=== PATIENT | female | born 1955 | race Caucasian/White ===

== ENCOUNTER 2017-09-19 10:06 | Emergency (ER) | payer OTHER, MEDICAID ==
[~2017-09-19] VITALS: Ht 154.9 cm; Wt 68.0 kg
[2017-09-19 10:16] VITALS: BP_SYST 157
[2017-09-19 11:18] LABS: INFLUENZA A&B ANTIGEN SCREEN NEGATIVE FOR A & B (NEGATIVE); STREPTOCOCCUS A SCREEN (RAPID) NEGATIVE (NEGATIVE)
[2017-09-19 11:35] VITALS: BP_SYST 157
== END 2017-09-19 11:35 | disposition home or self-care (01) ==
LOC: SED 10:06
DX: J06.9 Acute upper respiratory infection, unspecified (principal); E11.9 Type 2 diabetes mellitus without complications; Z88.0 Allergy status to penicillin
CPT/HCPCS: 36415; 86403; 86710; 87081; 99284

== ENCOUNTER 2018-04-29 14:47 | Emergency (ER) | payer OTHER, MEDICAID ==
[~2018-04-29] VITALS: Ht 154.9 cm; Wt 68.0 kg
[2018-04-29 15:01] VITALS: BP_SYST 148
--- NOTE | 2018-04-29 15:18 | NUR ---
Pt to WR.
[2018-04-29 15:50] LABS: BASOPHILS # (AUTO) 0.1 K/uL (0.0-0.2); EOSINOPHILS % (AUTO) 0.4 % (0.0-4.0); HEMATOCRIT 41.2 % (36-48); HEMOGLOBIN 13.9 g/dL (12.0-16.0); LYMPHOCYTES # (AUTO) 1.9 K/uL (1.0-5.5); LYMPHOCYTES % (AUTO) 19.3 % (20.5-51.5); MEAN CORPUSCULAR HEMOGLOBIN 30 pg (27-31); MEAN CORPUSCULAR HGB CONC 34 % (32-36); MEAN CORPUSCULAR VOLUME 88 fL (79.0-98.0); MONOCYTES # (AUTO) 0.4 K/uL (0.0-1.0); MONOCYTES % (AUTO) 4.4 % (1.7-9.3); NEUTROPHILS # (AUTO) 7.5 K/uL (1.8-7.7); NEUTROPHILS % (AUTO) 74.9 % (40.0-70.0); PLATELET COUNT (AUTO) 173 K/uL (130-430); RED CELL DISTRIBUTION WIDTH 12.5 % (9.0-15.0); WHITE BLOOD COUNT (AUTO) 9.9 K/uL (4.8-10.8)
[2018-04-29 16:09] LABS: CREATININE 0.69 mg/dL (0.55-1.30)
--- NOTE | 2018-04-29 16:30 | NUR ---
Patient to ER bed 7 to gown for evaluation. Side rails up. Report given to Roselia POWERS.
--- NOTE | 2018-04-29 16:45 | NUR ---
Dr Morales at bedside examining patient
[2018-04-29 16:50] LABS: BILIRUBIN,URINE NEGATIVE (NEGATIVE); BLOOD, URINE 1+ (NEGATIVE); CLARITY/URINE CLEAR (CLEAR); COLOR,URINE YELLOW (YELLOW); GLUCOSE,URINE 3+ (NEGATIVE); KETONES,URINE NEGATIVE (NEGATIVE); LEUKOCYTE ESTERASE ,URINE NEGATIVE (NEGATIVE); NITRITE, URINE NEGATIVE (NEGATIVE); PROTEIN URINE NEGATIVE (NEGATIVE); UROBILINOGEN,URINE 0.2 (0.2-1.0)
--- NOTE | 2018-04-29 16:50 | NUR ---
Pt brought by family, A&Ox4, pt states her BS on insulin pump was reading >600 , current BS 219, pt c/o mind dizziness, able to ambulate, VS WNL, pt denies chest pain, respirations even and unlabored, no N/V/D.
--- NOTE | 2018-04-29 17:00 | NUR ---
Pt on stable condition, VS WNL, respirations even and unlabored
[2018-04-29 17:03] LABS: BACTERIA,URINE RARE /HPF (None Seen); WBC,URINE 0-3 /HPF (0-3)
[2018-04-29 17:28] VITALS: BP_SYST 148
--- NOTE | 2018-04-29 17:30 | NUR ---
Patient given written and verbal discharge instructions and verbalizes understanding. ER MD discussed with patient the results and treatment provided. Patient in stable condition. ID arm band removed. No Rx given. Patient educated on pain management and to follow up with PMD. Pain Scale 0/10 . Opportunity for questions provided and answered. Medication side effect fact sheet provided.
== END 2018-04-29 17:28 | disposition home or self-care (01) ==
LOC: SED 14:47
DX: E11.65 Type 2 diabetes mellitus with hyperglycemia (principal); I10 Essential (primary) hypertension; G89.29 Other chronic pain; Z88.0 Allergy status to penicillin
CPT/HCPCS: 36415; 80048; 81000-TC; 85025; 99284

== ENCOUNTER 2021-06-08 17:47 | Emergency (ER) | payer OTHER, MEDICAID ==
[~2021-06-08] VITALS: Ht 154.9 cm; Wt 68.0 kg
[2021-06-08 18:10] VITALS: BP_SYST 165
--- NOTE | 2021-06-08 18:15 | NUR ---
Pt triaged and placed in waiting room
--- NOTE | 2021-06-08 19:14 | NUR ---
Patient to ER bed 7 to gown for evaluation. Side rails up. Report given to Elli POWERS.
--- NOTE | 2021-06-08 19:30 | NUR ---
Pt AAO and ambulatory reporting "high" blood sugar today @ 1400. Pt gave herself 12 units of insulin at home prior to coming in. On arrival bs noted to be (362). Pt reports fatigue, excessive thirst, and excessive urination. Pt has history of DM, thyroid, and high cholesterol. Pt currently denies any pain.
--- NOTE | 2021-06-08 19:45 | NUR ---
Dr. Knott at bedside to assess.
[2021-06-08 19:52] LABS: BILIRUBIN,URINE NEGATIVE (NEGATIVE); BLOOD, URINE 1+ (NEGATIVE); CLARITY/URINE CLEAR (CLEAR); COLOR,URINE YELLOW (YELLOW); GLUCOSE,URINE 3+ (NEGATIVE); KETONES,URINE NEGATIVE (NEGATIVE); LEUKOCYTE ESTERASE ,URINE NEGATIVE (NEGATIVE); NITRITE, URINE NEGATIVE (NEGATIVE); PROTEIN URINE NEGATIVE (NEGATIVE); UROBILINOGEN,URINE 0.2 (0.2-1.0)
[2021-06-08] MEDS ORDERED: NS 500 ML IV ONE (20:00)
--- NOTE | 2021-06-08 20:10 | NUR ---
# 20 gauge angiocath placed to left hand. Use of asceptic technique. Opsite placed over site. Blood return noted. Blood for lab drawn from site. Flushed with 10 cc of normal saline. No evidence of infiltration noted. Patient tolerated well.
[2021-06-08 20:34] LABS: BACTERIA,URINE FEW /HPF (None Seen)
[2021-06-08 20:35] LABS: MUCUS,URINE None Seen /LPF (None Seen)
[2021-06-08 20:39] LABS: BASOPHILS # (AUTO) 0.1 K/uL (0.0-0.2); BASOPHILS % (AUTO) 0.8 % (0.0-2.0); EOSINOPHILS % (AUTO) 0.3 % (0.0-4.0); HEMATOCRIT 41.2 % (36-48); HEMOGLOBIN 13.9 g/dL (12.0-16.0); LYMPHOCYTES # (AUTO) 2.6 K/uL (1.0-5.5); LYMPHOCYTES % (AUTO) 28.8 % (20.5-51.5); MEAN CORPUSCULAR HEMOGLOBIN 30 pg (27-31); MEAN CORPUSCULAR HGB CONC 34 % (32-36); MEAN CORPUSCULAR VOLUME 88 fL (79.0-98.0); MONOCYTES # (AUTO) 0.7 K/uL (0.0-1.0); NEUTROPHILS # (AUTO) 5.7 K/uL (1.8-7.7); NEUTROPHILS % (AUTO) 62.1 % (40.0-70.0); PLATELET COUNT (AUTO) 149 K/uL (130-430); RED BLOOD CELL COUNT(AUTO) 4.67 MIL/uL (4.2-6.2); WHITE BLOOD COUNT (AUTO) 9.2 K/uL (4.8-10.8)
[2021-06-08 20:53] LABS: CALCIUM 9.5 mg/dL (8.4-11.0); CREATININE 0.87 mg/dL (0.55-1.30); POTASSIUM 3.8 mmol/L (3.5-5.1)
[2021-06-08 21:04] LABS: ALBUMIN 4.1 g/dL (3.4-4.8); PHOSPHORUS 2.9 mg/dL (2.7-4.5); TOTAL BILIRUBIN 0.4 mg/dL (0.0-1.0)
--- NOTE | 2021-06-08 21:05 | NUR ---
Pt resting quietly in no distress awaiting disposition.
[2021-06-08 22:14] VITALS: BP_SYST 165
--- NOTE | 2021-06-08 22:14 | NUR ---
Patient given written and verbal discharge instructions and verbalizes understanding. ER MD MORALES discussed with patient the results and treatment provided. Patient in stable condition. ID arm band removed. IV catheter removed intact and dressing applied, no active bleeding. Patient educated on pain management and to follow up with PMD. Pain Scale 0/10. Opportunity for questions provided and answered. Medication side effect fact sheet provided.
== END 2021-06-08 22:14 | disposition home or self-care (01) ==
LOC: SED 17:47
DX: E10.65 Type 1 diabetes mellitus with hyperglycemia (principal); I10 Essential (primary) hypertension; Z88.0 Allergy status to penicillin
CPT/HCPCS: 36415; 80053; 81000; 82962; 83735; 84100; 85025; 96360; 99283; J7030

== ENCOUNTER 2022-12-01 14:47 | Emergency (ER) | payer OTHER, MEDICAID ==
[~2022-12-01] VITALS: Ht 160 cm; Wt 72.6 kg
[2022-12-01 14:57] VITALS: BP_SYST 132
--- NOTE | 2022-12-01 15:02 | NUR ---
Patient presents to the ED BIB daughter from home. Patient is a&ox4, and stable. Chief Complaint: Report of high blood sugars ranging from 400-500 x1d. Patient describes feeling fatigued, thirsty, and sob, daughter states that patient becomes SOB when blood sugar is high. Patient has a history of DM2, Hypothyroid, and a HTN medication but patient states is PRN. Last dose of Losartan 50mg was yesterday am. Patient in bed with side rails up, daughter at bedside.
--- NOTE | 2022-12-01 15:13 | NUR ---
Patient in restroom collecting urine.
[2022-12-01] MEDS ORDERED: NACL 0.9% 2,000 ML IV ONE (15:15)
--- NOTE | 2022-12-01 15:17 | NUR ---
Swabbed for COVID, sent to lab.
[2022-12-01 15:38] LABS: BILIRUBIN,URINE NEGATIVE (NEGATIVE); BLOOD, URINE 1+ (NEGATIVE); CLARITY/URINE CLEAR (CLEAR); COLOR,URINE YELLOW (YELLOW); GLUCOSE,URINE 3+ (NEGATIVE); KETONES,URINE 3+ (NEGATIVE); LEUKOCYTE ESTERASE ,URINE NEGATIVE (NEGATIVE); NITRITE, URINE NEGATIVE (NEGATIVE); PH,URINE 5.5 (5.0-8.0); PROTEIN URINE NEGATIVE (NEGATIVE); UROBILINOGEN,URINE 0.2 (0.2-1.0)
[2022-12-01 15:51] LABS: BACTERIA,URINE None Seen /HPF (None Seen); MUCUS,URINE None Seen /LPF (None Seen); RBC,URINE NONE SEEN /HPF (0-3); WBC,URINE 0-3 /HPF (0-3)
[2022-12-01 15:58] LABS: BASOPHILS % (AUTO) 0.4 % (0.0-2.0); HEMATOCRIT 40.5 % (36-48); HEMOGLOBIN 13.3 g/dL (12.0-16.0); LYMPHOCYTES # (AUTO) 1.5 K/uL (1.0-5.5); MEAN CORPUSCULAR HEMOGLOBIN 30 pg (27-31); MEAN CORPUSCULAR HGB CONC 33 % (32-36); MEAN CORPUSCULAR VOLUME 90 fL (79.0-98.0); MONOCYTES # (AUTO) 0.4 K/uL (0.0-1.0); NEUTROPHILS # (AUTO) 10.3 K/uL (1.8-7.7); NEUTROPHILS % (AUTO) 84.6 % (40.0-70.0); PLATELET COUNT (AUTO) 138 K/uL (130-430); RED BLOOD CELL COUNT(AUTO) 4.52 MIL/uL (4.2-6.2); RED CELL DISTRIBUTION WIDTH 13.4 % (9.0-15.0); WHITE BLOOD COUNT (AUTO) 12.2 K/uL (4.8-10.8)
[2022-12-01 15:59] LABS: ANION GAP 15 (5-15); CALCIUM 9.5 mg/dL (8.4-11.0); CHLORIDE 97 mmol/L (98-107); GFR AFRICAN AMERICAN 71 mL/min (>90); UREA NITROGEN, BLOOD 19 mg/dL (8-21)
[2022-12-01 16:05] LABS: ACETONE, SERUM NEGATIVE (NEGATIVE)
[2022-12-01 16:13] LABS: ALANINE AMINOTRANSFERASE 23 U/L (12-78); ALBUMIN 4.1 g/dL (3.4-4.8); ASPARTATE AMINOTRANSFERASE 17 U/L (10-37); TOTAL BILIRUBIN 0.7 mg/dL (0.0-1.0)
[2022-12-01 16:20] LABS: GLUCOSE 485 mg/dL (70-99)
--- NOTE | 2022-12-01 16:38 | NUR ---
Accucheck obtained. Result 421. Patient a&o x4. IV pole added to allow bolus to infuse properly, initally was on pole attached to bed and was infusing very slowly. Patient attached to bp monitor and o2 sat. Daughter at bedside, bedrails up. Patient stable at this time.
[2022-12-01] MEDS ORDERED: INSULIN REGULAR, HUMAN 10 UNITS/0.1 ML, 3 ML VIAL IVP ONE (16:45)
--- NOTE | 2022-12-01 16:47 | NUR ---
Respiratory at bed side for ABG draw.
[2022-12-01 16:49] VITALS: BP_SYST 108
--- NOTE | 2022-12-01 17:10 | NUR ---
Requested an RN to administer the IVP of Humulin R, Michelle POWERS administered.
--- NOTE | 2022-12-01 17:11 | NUR ---
second infusion of NS 0.9% started, line disconnected from patient and line primed prior to beginning second infusion. IV site is intact, negative for swelling or redness, patient denies pain at site. IV is on right AC
--- NOTE | 2022-12-01 18:50 | NUR ---
Per Dr Fisher, OK to discharge once BS below 300. BS 270 at 1845 Patient given written and verbal discharge instructions and verbalizes understanding. ER MD Fisher discussed with patient the results and treatment provided. Patient in stable condition. ID arm band removed. IV catheter removed intact and dressing applied, no active bleeding. Rx of given. Patient educated on pain management and to follow up with PMD. Pain Scale 0/10. Opportunity for questions provided and answered. Medication side effect fact sheet provided. Patient encouraged to follow up with primary physician for possible health education classes for DM2 management. Patient and daughter verbalized understanding.
[2022-12-02] MEDS ORDERED: LEVO88TA5 PO (14:31)
[2022-12-02] MEDS ORDERED: LIP40 PO (14:31)
[2022-12-02] MEDS ORDERED: SSNOVOLOG SUBCUT (14:31)
== END 2022-12-01 15:15 | disposition home or self-care (01) ==
LOC: SED 14:47
DX: E11.65 Type 2 diabetes mellitus with hyperglycemia (principal); I10 Essential (primary) hypertension; Z88.0 Allergy status to penicillin; Z79.899 Other long term (current) drug therapy; Z20.822 Contact with and (suspected) exposure to COVID-19
CPT/HCPCS: 99285; 96374; 71045; 87426; 80053; 81000; 82009; 85025; 87040; 87086; 36415; 93005; 36600; 82803; 83605; 82962; J1815

== ENCOUNTER 2022-12-02 09:32 | Inpatient (IN) | payer OTHER, MEDICAID ==
[2022-12-02] VITALS (12 sets, daily range): BP systolic 93–136
[~2022-12-02] VITALS: Ht 152.4 cm; Wt 68.9 kg
[2022-12-02] MEDS ORDERED: ONDANSETRON HCL 4 MG/2 ML VIAL IVP ONE (10:15)
[2022-12-02] MEDS ORDERED: LR 1,000 ML IV ONE ×2 (10:15)
[2022-12-02 10:33] LABS: BASOPHILS # (AUTO) 0.1 K/uL (0.0-0.2); BASOPHILS % (AUTO) 0.3 % (0.0-2.0); HEMATOCRIT 37.8 % (36-48); HEMOGLOBIN 12.3 g/dL (12.0-16.0); LYMPHOCYTES % (AUTO) 9.3 % (20.5-51.5); MEAN CORPUSCULAR HEMOGLOBIN 30 pg (27-31); MEAN CORPUSCULAR HGB CONC 32 % (32-36); MEAN CORPUSCULAR VOLUME 91 fL (79.0-98.0); MONOCYTES # (AUTO) 0.9 K/uL (0.0-1.0); MONOCYTES % (AUTO) 4.2 % (1.7-9.3); NEUTROPHILS # (AUTO) 18.5 K/uL (1.8-7.7); NEUTROPHILS % (AUTO) 86.2 % (40.0-70.0); PLATELET COUNT (AUTO) 150 K/uL (130-430); RED BLOOD CELL COUNT(AUTO) 4.15 MIL/uL (4.2-6.2); WHITE BLOOD COUNT (AUTO) 21.5 K/uL (4.8-10.8)
[2022-12-02 10:54] LABS: ALANINE AMINOTRANSFERASE 22 U/L (12-78); ALBUMIN 3.5 g/dL (3.4-4.8); ANION GAP 23 (5-15); ASPARTATE AMINOTRANSFERASE 18 U/L (10-37); CHLORIDE 102 mmol/L (98-107); CREATININE 1.22 mg/dL (0.55-1.30); GFR AFRICAN AMERICAN 56 mL/min (>90); TOTAL BILIRUBIN 0.8 mg/dL (0.0-1.0); UREA NITROGEN, BLOOD 24 mg/dL (8-21)
[2022-12-02 10:56] LABS: LIPASE 20 U/L (73-393)
[2022-12-02 11:22] LABS: GLUCOSE 502 mg/dL (70-99)
[2022-12-02 11:23] LABS: ACETONE, SERUM SMALL (NEGATIVE)
[2022-12-02] MEDS ORDERED: INSULIN REGULAR, HUMAN 100 UNITS in NS 99 ML IV ONE ×2 (11:30)
[2022-12-02] MEDS ORDERED: KCL 20 mEq in 100 mL (PREMIX) 100 ML IV ONE (11:30)
[2022-12-02] MEDS ORDERED: NACL 0.9% 1,000 ML IV SCH (12:00)
[2022-12-02 12:02] LABS: BILIRUBIN,URINE NEGATIVE (NEGATIVE); CLARITY/URINE CLEAR (CLEAR); COLOR,URINE YELLOW (YELLOW); GLUCOSE,URINE 3+ (NEGATIVE); KETONES,URINE 3+ (NEGATIVE); LEUKOCYTE ESTERASE ,URINE NEGATIVE (NEGATIVE); NITRITE, URINE NEGATIVE (NEGATIVE); PH,URINE 5.5 (5.0-8.0); PROTEIN URINE NEGATIVE (NEGATIVE); UROBILINOGEN,URINE 0.2 (0.2-1.0)
[2022-12-02 12:03] LABS: BLOOD, URINE TRACE (NEGATIVE)
[2022-12-02 12:28] LABS: BACTERIA,URINE FEW /HPF (None Seen); RBC,URINE 0-3 /HPF (0-3); WBC,URINE 0-3 /HPF (0-3)
[2022-12-02] MEDS ORDERED: SSNOVOLOG SUBCUT (14:31)
[2022-12-02] MEDS ORDERED: LIP40 PO (14:31)
[2022-12-02] MEDS ORDERED: LEVO88TA5 PO (14:31)
[2022-12-02] MEDS ORDERED: INSULIN REGULAR, HUMAN 100 UNITS in NS 99 ML IV SCH ×2 (15:15)
[2022-12-02] MEDS ORDERED: HYDROCHLOROTHIAZIDE 25 MG TABLET (HCTZ) PO ONE (15:15)
[2022-12-02] MEDS ORDERED: cloNIDine HCL 0.1 MG TABLET PO PRN (15:15)
[2022-12-02] MEDS ORDERED: INSULIN REGULAR, HUMAN 100 UNITS in NS 99 ML IV PRN ×2 (15:30)
[2022-12-02] MEDS ORDERED: HYDROcodone/ACETAMIN 10-325 MG TAB PO PRN (15:45)
[2022-12-02] MEDS ORDERED: ONDANSETRON HCL 4 MG/2 ML VIAL IVP PRN (15:45)
[2022-12-02] MEDS ORDERED: LORazepam 2 MG/ML VIAL IVP PRN (15:45)
[2022-12-02] MEDS ORDERED: NALOXONE HCL 0.4 MG/ML AMP (NARCAN) IVP PRN ×2 (15:45)
[2022-12-02] MEDS ORDERED: HYDROcodone/ACETAMIN 5-325 MG TAB (NORCO/ VICODIN) PO PRN (15:45)
[2022-12-02] MEDS ORDERED: ACETAMINOPHEN 325 MG TABLET PO PRN ×2 (15:45)
[2022-12-02] MEDS: NACL 0.9% 1,000 ML IV SCH (17:21)
[2022-12-02 17:33] LABS: BASOPHILS % (AUTO) 0.1 % (0.0-2.0); HEMATOCRIT 34.1 % (36-48); HEMOGLOBIN 11.1 g/dL (12.0-16.0); LYMPHOCYTES # (AUTO) 2.1 K/uL (1.0-5.5); MEAN CORPUSCULAR HEMOGLOBIN 30 pg (27-31); MEAN CORPUSCULAR HGB CONC 32 % (32-36); MEAN CORPUSCULAR VOLUME 91 fL (79.0-98.0); MONOCYTES # (AUTO) 0.9 K/uL (0.0-1.0); MONOCYTES % (AUTO) 4.3 % (1.7-9.3); NEUTROPHILS # (AUTO) 17.8 K/uL (1.8-7.7); NEUTROPHILS % (AUTO) 85.6 % (40.0-70.0); PLATELET COUNT (AUTO) 136 K/uL (130-430); RED BLOOD CELL COUNT(AUTO) 3.73 MIL/uL (4.2-6.2); RED CELL DISTRIBUTION WIDTH 14.1 % (9.0-15.0); WHITE BLOOD COUNT (AUTO) 20.8 K/uL (4.8-10.8)
[2022-12-02 17:45] LABS: ALBUMIN 3.1 g/dL (3.4-4.8); CALCIUM 8.2 mg/dL (8.4-11.0); CREATININE 1.26 mg/dL (0.55-1.30); TOTAL BILIRUBIN 0.6 mg/dL (0.0-1.0)
[2022-12-02] MEDS: PIPERACILLIN/TAZO 3.375/DEX-IS 50 ML IV SCH (17:56)
[2022-12-02] MEDS ORDERED: DEXTROSE 50% JECT 50 ML DISP.SYRIN IVP PRN (20:45)
[2022-12-02] MEDS: ATORVASTATIN 20 MG TABLET PO SCH (20:45)
[2022-12-02] MEDS ORDERED: INSULIN REGULAR, HUMAN 10 UNITS/0.1 ML, 3 ML VIAL IVP ONE (20:45)
[2022-12-02] MEDS: lisinopriL 20 MG TABLET PO SCH (21:04)
[2022-12-02] MEDS: INSULIN REGULAR, HUMAN 100 UNITS in NS 99 ML IV PRN ×2 (22:19)
[2022-12-03] VITALS (20 sets, daily range): BP systolic 91–129
[2022-12-03] MEDS: PIPERACILLIN/TAZO 3.375/DEX-IS 50 ML IV SCH ×5 (00:06→23:38)
[2022-12-03] MEDS: INSULIN REGULAR, HUMAN 100 UNITS in NS 99 ML IV PRN ×8 (00:07→05:51)
[2022-12-03 06:22] LABS: ALBUMIN 2.9 g/dL (3.4-4.8); CALCIUM 8.8 mg/dL (8.4-11.0); CREATININE 1.05 mg/dL (0.55-1.30); PHOSPHORUS 3.3 mg/dL (2.7-4.5); THYROID STIMULATING HORMONE 0.52 uIu/mL (0.34-4.82); TOTAL BILIRUBIN 0.9 mg/dL (0.0-1.0)
[2022-12-03] MEDS: LEVOTHYROXINE SODIUM 0.088 MG TABLET PO SCH (09:03)
[2022-12-03] MEDS: HYDROCHLOROTHIAZIDE 25 MG TABLET (HCTZ) PO SCH (09:03)
[2022-12-03] MEDS: INSULIN GLARGINE 100 UNITS/ML, 10 ML VIAL SUBCUT SCH (09:08)
[2022-12-03] MEDS: DEXTROMET/BENZOCAIN/MENTHOL SF 1 LOZENGE MM PRN (11:06)
[2022-12-03] MEDS ORDERED: INSULIN Lispro 100 UNITS/ML, 3 ML VIAL (humaLOG) SUBCUT SCH (11:30)
[2022-12-03] MEDS: NACL 0.9% 1,000 ML IV SCH (12:46)
[2022-12-03] MEDS: INSULIN LISPRO SLIDING SCALE 100 UNITS/ML, 3 ML VIAL (humaLOG) SUBCUT PRN ×3 (12:48→21:00)
[2022-12-03 13:42] LABS: BASOPHILS # (AUTO) 0.1 K/uL (0.0-0.2); BASOPHILS % (AUTO) 0.9 % (0.0-2.0); EOSINOPHILS % (AUTO) 0.1 % (0.0-4.0); HEMATOCRIT 33.5 % (36-48); LYMPHOCYTES # (AUTO) 2.4 K/uL (1.0-5.5); LYMPHOCYTES % (AUTO) 16.7 % (20.5-51.5); MEAN CORPUSCULAR HEMOGLOBIN 30 pg (27-31); MEAN CORPUSCULAR HGB CONC 33 % (32-36); MEAN CORPUSCULAR VOLUME 90 fL (79.0-98.0); MONOCYTES # (AUTO) 1.1 K/uL (0.0-1.0); MONOCYTES % (AUTO) 7.3 % (1.7-9.3); NEUTROPHILS # (AUTO) 10.8 K/uL (1.8-7.7); PLATELET COUNT (AUTO) 134 K/uL (130-430); RED BLOOD CELL COUNT(AUTO) 3.71 MIL/uL (4.2-6.2); RED CELL DISTRIBUTION WIDTH 13.9 % (9.0-15.0)
[2022-12-03 13:47] LABS: WHITE BLOOD COUNT (AUTO) 14.5 K/uL (4.8-10.8)
[2022-12-03] MEDS: ATORVASTATIN 20 MG TABLET PO SCH (20:50)
[2022-12-03] MEDS: lisinopriL 20 MG TABLET PO SCH (20:50)
[2022-12-04] VITALS: BP_SYST 116
[2022-12-04 03:15] VITALS: BP_SYST 135
[2022-12-04] MEDS: DEXTROMET/BENZOCAIN/MENTHOL SF 1 LOZENGE MM PRN (05:51)
[2022-12-04] MEDS: PIPERACILLIN/TAZO 3.375/DEX-IS 50 ML IV SCH ×4 (06:20→23:05)
[2022-12-04] MEDS: INSULIN LISPRO SLIDING SCALE 100 UNITS/ML, 3 ML VIAL (humaLOG) SUBCUT PRN ×3 (06:22→17:26)
[2022-12-04 06:54] LABS: BASOPHILS # (AUTO) 0.1 K/uL (0.0-0.2); BASOPHILS % (AUTO) 0.6 % (0.0-2.0); EOSINOPHILS # (AUTO) 0.3 K/uL (0.0-0.4); EOSINOPHILS % (AUTO) 3.3 % (0.0-4.0); HEMATOCRIT 34.2 % (36-48); HEMOGLOBIN 11.6 g/dL (12.0-16.0); LYMPHOCYTES # (AUTO) 2.3 K/uL (1.0-5.5); LYMPHOCYTES % (AUTO) 23.1 % (20.5-51.5); MEAN CORPUSCULAR HEMOGLOBIN 30 pg (27-31); MEAN CORPUSCULAR HGB CONC 34 % (32-36); MEAN CORPUSCULAR VOLUME 89 fL (79.0-98.0); MONOCYTES # (AUTO) 0.4 K/uL (0.0-1.0); MONOCYTES % (AUTO) 4.6 % (1.7-9.3); NEUTROPHILS # (AUTO) 6.7 K/uL (1.8-7.7); NEUTROPHILS % (AUTO) 68.4 % (40.0-70.0); PLATELET COUNT (AUTO) 110 K/uL (130-430); RED BLOOD CELL COUNT(AUTO) 3.86 MIL/uL (4.2-6.2); RED CELL DISTRIBUTION WIDTH 13.9 % (9.0-15.0); WHITE BLOOD COUNT (AUTO) 9.8 K/uL (4.8-10.8)
[2022-12-04 07:40] LABS: ALBUMIN 2.8 g/dL (3.4-4.8); C-REACTIVE PROTEIN QUANT 2.6 mg/dL (0-0.5); CALCIUM 8.6 mg/dL (8.4-11.0); CREATININE 0.74 mg/dL (0.55-1.30); PHOSPHORUS 3.1 mg/dL (2.7-4.5); TOTAL BILIRUBIN 0.9 mg/dL (0.0-1.0)
[2022-12-04 08:00] VITALS: BP_SYST 129
[2022-12-04] MEDS: NACL 0.9% 1,000 ML IV SCH (08:45)
[2022-12-04] MEDS: LEVOTHYROXINE SODIUM 0.088 MG TABLET PO SCH (08:49)
[2022-12-04] MEDS: HYDROCHLOROTHIAZIDE 25 MG TABLET (HCTZ) PO SCH (08:49)
[2022-12-04] MEDS: INSULIN GLARGINE 100 UNITS/ML, 10 ML VIAL SUBCUT SCH (08:51)
[2022-12-04 09:17] LABS: ERYTHROCYTE SEDIMENTATION RATE 5 MM/HR (0-20)
[2022-12-04 12:00] VITALS: BP_SYST 126
[2022-12-04 15:48] VITALS: BP_SYST 124
[2022-12-04 20:00] VITALS: BP_SYST 119
[2022-12-04] MEDS: ATORVASTATIN 20 MG TABLET PO SCH (20:05)
[2022-12-04] MEDS: lisinopriL 20 MG TABLET PO SCH (20:05)
[2022-12-05] VITALS: BP_SYST 103
[2022-12-05] MEDS: PIPERACILLIN/TAZO 3.375/DEX-IS 50 ML IV SCH (06:10)
[2022-12-05 06:21] LABS: BASOPHILS % (AUTO) 0.7 % (0.0-2.0); EOSINOPHILS # (AUTO) 0.2 K/uL (0.0-0.4); EOSINOPHILS % (AUTO) 3.6 % (0.0-4.0); HEMATOCRIT 37.9 % (36-48); HEMOGLOBIN 12.8 g/dL (12.0-16.0); LYMPHOCYTES # (AUTO) 2.1 K/uL (1.0-5.5); LYMPHOCYTES % (AUTO) 30.7 % (20.5-51.5); MEAN CORPUSCULAR HEMOGLOBIN 30 pg (27-31); MEAN CORPUSCULAR HGB CONC 34 % (32-36); MEAN CORPUSCULAR VOLUME 88 fL (79.0-98.0); MONOCYTES # (AUTO) 0.4 K/uL (0.0-1.0); MONOCYTES % (AUTO) 5.4 % (1.7-9.3); NEUTROPHILS # (AUTO) 4.1 K/uL (1.8-7.7); NEUTROPHILS % (AUTO) 59.6 % (40.0-70.0); PLATELET COUNT (AUTO) 105 K/uL (130-430); RED BLOOD CELL COUNT(AUTO) 4.32 MIL/uL (4.2-6.2); RED CELL DISTRIBUTION WIDTH 13.4 % (9.0-15.0); WHITE BLOOD COUNT (AUTO) 6.8 K/uL (4.8-10.8)
[2022-12-05 06:49] LABS: CALCIUM 8.9 mg/dL (8.4-11.0); CREATININE 0.73 mg/dL (0.55-1.30)
[2022-12-05 08:00] VITALS: BP_SYST 106
[2022-12-05] MEDS: HYDROCHLOROTHIAZIDE 25 MG TABLET (HCTZ) PO SCH (08:12)
[2022-12-05] MEDS: LEVOTHYROXINE SODIUM 0.088 MG TABLET PO SCH (08:12)
[2022-12-05] MEDS: INSULIN GLARGINE 100 UNITS/ML, 10 ML VIAL SUBCUT SCH (08:13)
[2022-12-05 09:12] LABS: ERYTHROCYTE SEDIMENTATION RATE 11 MM/HR (0-20)
[2022-12-05] MEDS ORDERED: LISI20TA30 PO (10:23)
[2022-12-05] MEDS ORDERED: HCT25 PO (10:23)
[2022-12-05] MEDS ORDERED: ONDA-8 TL (10:23)
[2022-12-05] MEDS ORDERED: KCL 40 mEq in 100 mL (PREMIX) 100 ML IV ONE (10:30)
[2022-12-05 10:43] VITALS: BP_SYST 113
[2022-12-05] MEDS: POTASSIUM CHLORIDE 20 mEq in 100 mL (PREMIX) 100 ML x 2 doses IV SCH ×2 (11:05→14:14)
[2022-12-05] MEDS: INSULIN LISPRO SLIDING SCALE 100 UNITS/ML, 3 ML VIAL (humaLOG) SUBCUT PRN (11:23)
[2022-12-05 16:38] VITALS: BP_SYST 99
[2022-12-05] MEDS ORDERED: INSULIN Lispro 100 UNITS/ML, 3 ML VIAL (humaLOG) SUBCUT SCH (17:00)
[2022-12-05 18:10] LABS: CALCIUM 9.1 mg/dL (8.4-11.0); CREATININE 0.74 mg/dL (0.55-1.30)
[2022-12-05 18:30] VITALS: BP_SYST 99
== END 2022-12-05 19:20 | disposition home or self-care (01) | DRG 638 ==
LOC: SED 09:32 → SIC 11:57 → STU 12-04 02:25
PROVIDERS: ADMIT Preventive Medicine Preventive Medicine/Occupational Environmental Medicine; ATTEND Preventive Medicine Preventive Medicine/Occupational Environmental Medicine
DX: E11.10 Type 2 diabetes mellitus with ketoacidosis without coma (principal); E44.0 Moderate protein-calorie malnutrition; R65.10 Systemic inflammatory response syndrome (SIRS) of non-infectious origin without acute organ dysfunction; E11.65 Type 2 diabetes mellitus with hyperglycemia; E03.9 Hypothyroidism, unspecified; D72.829 Elevated white blood cell count, unspecified; E86.0 Dehydration; I10 Essential (primary) hypertension; Z20.822 Contact with and (suspected) exposure to COVID-19; E87.6 Hypokalemia; Z96.41 Presence of insulin pump (external) (internal); D69.6 Thrombocytopenia, unspecified; E88.09 Other disorders of plasma-protein metabolism, not elsewhere classified; I25.10 Atherosclerotic heart disease of native coronary artery without angina pectoris; E78.00 Pure hypercholesterolemia, unspecified; D64.9 Anemia, unspecified; Z88.0 Allergy status to penicillin; Z79.4 Long term (current) use of insulin; Z68.29 Body mass index [BMI] 29.0-29.9, adult
CPT/HCPCS: 36415; 36600; 71045; 80048; 80053; 81000; 82009; 82803-TC; 82962; 83605; 83690; 83735; 83880; 84100; 84436; 84443; 84484; 85025; 85651-TC; 86140; 87040; 87081; 87086; 93005; 93306; 99291; G0378; J1815; J2405; J2543; J3480